=== PATIENT | female | born 1945 | race Two or more races ===

== ENCOUNTER 2017-07-14 15:50 | Outpatient (CLI) | payer OTHER | END 2017-07-14 16:03 | disposition home or self-care (01) | LOC: MAMO-SONO 15:50 | DX: Z12.31 Encounter for screening mammogram for malignant neoplasm of breast (principal); Z87.898 Personal history of other specified conditions; N60.11 Diffuse cystic mastopathy of right breast; N60.12 Diffuse cystic mastopathy of left breast ==

== ENCOUNTER → 2017-07-14 | Outpatient (CLI) | payer OTHER | END | disposition home or self-care (01) | LOC: RAD 16:58 | DX: M22.2X1 Patellofemoral disorders, right knee (principal); M22.2X2 Patellofemoral disorders, left knee; I11.9 Hypertensive heart disease without heart failure ==

== ENCOUNTER 2017-07-16 12:13 | Outpatient (CLI) | payer OTHER | END 2017-07-16 15:23 | disposition home or self-care (01) | LOC: LAB 12:13 | DX: E78.00 Pure hypercholesterolemia, unspecified (principal); R73.01 Impaired fasting glucose; K21.9 Gastro-esophageal reflux disease without esophagitis; I11.9 Hypertensive heart disease without heart failure; J30.2 Other seasonal allergic rhinitis ==